=== PATIENT | male | born 1975 | race African-American/Black ===

== ENCOUNTER 2019-04-19 10:11 | Inpatient (IN) | payer OTHER ==
[2019-04-19 10:57] VITALS: BMI 24.5
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
[2019-04-19] MEDS ORDERED: IBUPROFEN 400 MG TABLET (FP) PO PRN (11:32)
[2019-04-19] MEDS ORDERED: BISMUTH SUBSALICYLATE 262 MG/15 ML BTL PO PRN (11:32)
[2019-04-19] MEDS ORDERED: MENTHOL/PHENOL 1 EACH UD MM PRN (11:32)
[2019-04-19] MEDS ORDERED: hydrOXYzine PAMOATE 25 MG CAPSULE (FP) PO PRN (11:32)
[2019-04-19] MEDS ORDERED: MAGNESIUM HYDROX 2400MG/30ML ORAL SUSPENSION 30 ML CUP PO PRN (11:32)
[2019-04-19] MEDS ORDERED: ACETAMINOPHEN 325 MG TABLET (FP) PO PRN ×2 (11:32)
[2019-04-19] MEDS ORDERED: MAGNESIUM CITRATE 300 ML BOTTLE PO PRN (11:32)
[2019-04-19] MEDS ORDERED: PATIENT'S OWN MEDICATION (NON-FORMULARY) (Amlodipine Besylate/Benazepril [Amlodipine-Benaz PO SCH (11:45)
[2019-04-19] MEDS: LISINOPRIL 10 MG TABLET (FP) PO SCH (13:48)
[2019-04-19] MEDS: NICOTINE 14 MG/24 HOURS TOPICAL PATCH TD SCH (13:48)
[2019-04-19] MEDS: amLODIPine BESYLATE 10 MG TABLET (FP) PO SCH (13:48)
[2019-04-19] MEDS: chlordiazePOXIDE HCL 25 MG CAPSULE PO SCH ×3 (13:48→22:18)
[2019-04-19 15:15] LABS: ALBUMIN 3.9 g/dl (3.4-5.0); BILIRUBIN,TOTAL 0.7 mg/dL (0.2-1); BLOOD UREA NITROGEN 12.5 mg/dL (7-18); CALCIUM 9.1 mg/dL (8.5-10.1); CREATININE 1.2 mg/dL (0.55-1.3); TOT PROT 6.9 g/dl (6.4-8.2)
[2019-04-19 15:24] LABS: HEMATOCRIT 46.3 % (35.4-49); HEMOGLOBIN 15.4 GM/dL (11.7-16.9); MCHC 33.3 g/dl (32.0-35.9); MEAN PLT VOLUME 9.2 fl (7.5-11.1); PLATELET COUNT 187 K/MM3 (134-434); RBC 5.51 M/mm3 (4.00-5.60); RDW 15.2 % (11.9-15.9); WHITE BLOOD COUNT 4.4 K/mm3 (4.0-10.0)
--- NOTE | 2019-04-19 15:56 | CONSULT ---
[facility] Psychiatric Consult - Data Date of interview: 04/19/19 Admission source: [facility]
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
[2019-04-19] MEDS: busPIRone HCL 10 MG TABLET (FP) PO SCH (22:18)
[2019-04-19] MEDS: THIAMINE HCL 100 MG TABLET (FP) PO SCH (22:18)
[2019-04-20] MEDS: chlordiazePOXIDE HCL 25 MG CAPSULE PO SCH ×4 (05:29→22:32)
[2019-04-20] MEDS: chlordiazePOXIDE HCL 25 MG CAPSULE PO PRN (07:49)
[2019-04-20] MEDS: METHOCARBAMOL 500 MG TABLET PO PRN (07:51)
[2019-04-20] MEDS: ARIPiprazole 10 MG TABLET PO SCH (10:09)
[2019-04-20] MEDS: PRENATAL VITAMINS W/ FOLIC ACID TABLET (FP) PO SCH (10:09)
[2019-04-20] MEDS: amLODIPine BESYLATE 10 MG TABLET (FP) PO SCH (10:10)
[2019-04-20] MEDS: NICOTINE 14 MG/24 HOURS TOPICAL PATCH TD SCH (10:10)
[2019-04-20] MEDS: LISINOPRIL 10 MG TABLET (FP) PO SCH (10:10)
[2019-04-20] MEDS: busPIRone HCL 10 MG TABLET (FP) PO SCH ×2 (10:10→22:32)
[2019-04-20] MEDS: ESCITALOPRAM OXALATE 10 MG TABLET (FP) PO SCH (10:10)
--- NOTE | 2019-04-20 14:36 | PN ---
[facility] CIWA - CIWA Score Nausea/Vomitin-No Nausea/No Vomiting Muscle Tremors: None Anxiety: 3 Agitation: 1-Slight > Activity Paroxysmal Sweats: No Perspiration Orientation: 2-Disoriented Date<2 days Tacttile Disturbances: 2-Mild Itch/Numbness/Burn Auditory Disturbances: 0-None Visual Disturbances: 3-Moderate Sensitivity Headache: 3-Moderate CIWA-Ar Total Score: 14 S Progress Note (SOAP) Subjective: Stomach Cramping, H/A, Fatigue, Anxious. Objective: PATIENT A & O X 2 (UNCERTAIN ABOUT CURRENT DAY / DATE). IN NO ACUTE DISTRESS. 04/20/19 14:37 Vital Signs Temperature 97.2 F L 04/20/19 13:50 Pulse Rate 65 04/20/19 13:50 Respiratory Rate 18 04/20/19 13:50 Blood Pressure 116/68 04/20/19 13:50 O2 Sat by Pulse Oximetry (%) Laboratory Tests 04/19/19 04/19/19 04/19/19 11:40 11:40 11:40 WBC 4.4 RBC 5.51 Hgb 15.4 Hct 46.3 MCV 84.0 MCH 28.0 MCHC 33.3 RDW 15.2 Plt Count 187 MPV 9.2 Sodium 140 Potassium 4.0 Chloride 103 Carbon Dioxide 29 Anion Gap 8 BUN 12.5 Creatinine 1.2 Est GFR (CKD-EPI)AfAm 84.13 Est GFR (CKD-EPI)NonAf 72.59 Random Glucose 79 Calcium 9.1 Total Bilirubin 0.7 AST 36 ALT 52 Alkaline Phosphatase 59 Total Protein 6.9 Albumin 3.9 RPR Titer Nonreactive HIV 1&2 Antibody Screen HIV P24 Antigen 04/19/19 11:40 WBC RBC Hgb Hct MCV MCH MCHC RDW Plt Count MPV Sodium Potassium Chloride Carbon Dioxide Anion Gap BUN Creatinine Est GFR (CKD-EPI)AfAm Est GFR (CKD-EPI)NonAf Random Glucose Calcium Total Bilirubin AST ALT Alkaline Phosphatase Total Protein Albumin RPR Titer HIV 1&2 Antibody Screen Cancelled HIV P24 Antigen Cancelled LABS NOTED. RESULTS OF DETOX ADMISSION QFT /TB AND OF HIV AB TESTS PENDING. 04/20/19 14:38 Assessment: 04/20/19 14:37 WITHDRAWAL SYMPTOMS. Plan: CONTINUE DETOX.
[2019-04-20] MEDS: THIAMINE HCL 100 MG TABLET (FP) PO SCH (22:32)
[2019-04-21] MEDS: chlordiazePOXIDE HCL 25 MG CAPSULE PO SCH ×4 (05:36→22:10)
[2019-04-21] MEDS: amLODIPine BESYLATE 10 MG TABLET (FP) PO SCH (10:10)
[2019-04-21] MEDS: ESCITALOPRAM OXALATE 10 MG TABLET (FP) PO SCH (10:10)
[2019-04-21] MEDS: busPIRone HCL 10 MG TABLET (FP) PO SCH ×2 (10:10→22:10)
[2019-04-21] MEDS: ARIPiprazole 10 MG TABLET PO SCH (10:10)
[2019-04-21] MEDS: LISINOPRIL 10 MG TABLET (FP) PO SCH (10:11)
[2019-04-21] MEDS: NICOTINE 14 MG/24 HOURS TOPICAL PATCH TD SCH (10:11)
[2019-04-21] MEDS: PRENATAL VITAMINS W/ FOLIC ACID TABLET (FP) PO SCH (10:11)
[2019-04-21] MEDS: chlordiazePOXIDE HCL 25 MG CAPSULE PO PRN (12:23)
--- NOTE | 2019-04-21 16:49 | PN ---
[facility] CIWA - CIWA Score Nausea/Vomitin-No Nausea/No Vomiting Muscle Tremors: None Anxiety: 3 Agitation: 1-Slight > Activity Paroxysmal Sweats: No Perspiration Orientation: 2-Disoriented Date<2 days Tacttile Disturbances: 2-Mild Itch/Numbness/Burn Auditory Disturbances: 0-None Visual Disturbances: 2-Mild Sensitivity Headache: 0-None Present CIWA-Ar Total Score: 10 S Progress Note (SOAP) Subjective: Interrupted Sleep, Fatigue, Stomach Cramping, Anxious. Objective: PATIENT A & O X 2 (UNCERTAIN ABOUT CURRENT DAY / DATE). IN NO ACUTE DISTRESS. 04/21/19 16:51 Vital Signs Temperature 98.9 F 04/21/19 13:30 Pulse Rate 79 04/21/19 13:30 Respiratory Rate 18 04/21/19 13:30 Blood Pressure 119/76 04/21/19 13:30 O2 Sat by Pulse Oximetry (%) Laboratory Tests 04/19/19 04/19/19 04/19/19 11:40 11:40 11:40 WBC 4.4 RBC 5.51 Hgb 15.4 Hct 46.3 MCV 84.0 MCH 28.0 MCHC 33.3 RDW 15.2 Plt Count 187 MPV 9.2 Sodium 140 Potassium 4.0 Chloride 103 Carbon Dioxide 29 Anion Gap 8 BUN 12.5 Creatinine 1.2 Est GFR (CKD-EPI)AfAm 84.13 Est GFR (CKD-EPI)NonAf 72.59 Random Glucose 79 Calcium 9.1 Total Bilirubin 0.7 AST 36 ALT 52 Alkaline Phosphatase 59 Total Protein 6.9 Albumin 3.9 RPR Titer Nonreactive HIV 1&2 Ag/Ab, 4th Gen HIV 1&2 Antibody Screen HIV P24 Antigen 04/19/19 04/19/19 11:40 11:40 WBC RBC Hgb Hct MCV MCH MCHC RDW Plt Count MPV Sodium Potassium Chloride Carbon Dioxide Anion Gap BUN Creatinine Est GFR (CKD-EPI)AfAm Est GFR (CKD-EPI)NonAf Random Glucose Calcium Total Bilirubin AST ALT Alkaline Phosphatase Total Protein Albumin RPR Titer HIV 1&2 Ag/Ab, 4th Gen Non reactive HIV 1&2 Antibody Screen Cancelled HIV P24 Antigen Cancelled LABS NOTED. RESULTS OF DETOX ADMISSION QFT /TB TEST PENDING. 04/21/19 16:51 Assessment: 04/21/19 16:52 WITHDRAWAL SYMPTOMS. Plan: CONTINUE DETOX.
[2019-04-21] MEDS: THIAMINE HCL 100 MG TABLET (FP) PO SCH (22:09)
[2019-04-22] MEDS ORDERED: chlordiazePOXIDE HCL 10 MG CAPSULE PO PRN
[2019-04-22] MEDS: chlordiazePOXIDE HCL 10 MG CAPSULE PO SCH ×4 (06:28→22:35)
[2019-04-22] MEDS: MAG HYDROX/AL HYDROX/SIMETH 30 ML UNIT-DOSE CUP PO PRN ×2 (06:28→21:47)
[2019-04-22] MEDS: amLODIPine BESYLATE 10 MG TABLET (FP) PO SCH (10:53)
[2019-04-22] MEDS: ARIPiprazole 10 MG TABLET PO SCH (10:53)
[2019-04-22] MEDS: ESCITALOPRAM OXALATE 10 MG TABLET (FP) PO SCH (10:53)
[2019-04-22] MEDS: LISINOPRIL 10 MG TABLET (FP) PO SCH (10:53)
[2019-04-22] MEDS: PRENATAL VITAMINS W/ FOLIC ACID TABLET (FP) PO SCH (10:53)
[2019-04-22] MEDS: busPIRone HCL 10 MG TABLET (FP) PO SCH ×2 (10:53→22:35)
[2019-04-22] MEDS: NICOTINE 14 MG/24 HOURS TOPICAL PATCH TD SCH (10:55)
[2019-04-22] MEDS: RANITIDINE HCL 150 MG TABLET (FP) PO SCH ×2 (12:18→22:35)
--- NOTE | 2019-04-22 15:53 | PN ---
[facility] CIWA - CIWA Score Nausea/Vomitin (Heartburn.) Muscle Tremors: 2 Anxiety: 3 Agitation: 1-Slight > Activity Paroxysmal Sweats: No Perspiration Orientation: 0-Oriented Tacttile Disturbances: 1-Very Mild Itch/Numbness Auditory Disturbances: 0-None Visual Disturbances: 2-Mild Sensitivity Headache: 0-None Present CIWA-Ar Total Score: 11 [facility] Progress Note (SOAP) Subjective: Interrupted Sleep, Heartburn (Patient Reports History of This At times in Past when Detoxing), Anxious. Objective: PATIENT A & O X 3, OBSERVED AMBULATING ON UNIT UNASSISTED. IN NO ACUTE DISTRESS. 04/22/19 15:50 Vital Signs Temperature 96.8 F L 04/22/19 09:47 Pulse Rate 76 04/22/19 09:47 Respiratory Rate 18 04/22/19 09:47 Blood Pressure 131/85 04/22/19 09:47 O2 Sat by Pulse Oximetry (%) Laboratory Tests 04/19/19 04/19/19 04/19/19 11:40 11:40 11:40 WBC 4.4 RBC 5.51 Hgb 15.4 Hct 46.3 MCV 84.0 MCH 28.0 MCHC 33.3 RDW 15.2 Plt Count 187 MPV 9.2 Sodium 140 Potassium 4.0 Chloride 103 Carbon Dioxide 29 Anion Gap 8 BUN 12.5 Creatinine 1.2 Est GFR (CKD-EPI)AfAm 84.13 Est GFR (CKD-EPI)NonAf 72.59 Random Glucose 79 Calcium 9.1 Total Bilirubin 0.7 AST 36 ALT 52 Alkaline Phosphatase 59 Total Protein 6.9 Albumin 3.9 RPR Titer Nonreactive HIV 1&2 Ag/Ab, 4th Gen HIV 1&2 Antibody Screen HIV P24 Antigen 04/19/19 04/19/19 11:40 11:40 WBC RBC Hgb Hct MCV MCH MCHC RDW Plt Count MPV Sodium Potassium Chloride Carbon Dioxide Anion Gap BUN Creatinine Est GFR (CKD-EPI)AfAm Est GFR (CKD-EPI)NonAf Random Glucose Calcium Total Bilirubin AST ALT Alkaline Phosphatase Total Protein Albumin RPR Titer HIV 1&2 Ag/Ab, 4th Gen Non reactive HIV 1&2 Antibody Screen Cancelled HIV P24 Antigen Cancelled LABS NOTED. RESULTS OF DETOX ADMISSION QFT /TB TEST PENDING. 04/22/19 15:50 Assessment: 04/22/19 15:51 WITHDRAWAL SYMPTOMS. Plan: CONTINUE DETOX. INCREASE DAILY PO WATER INTAKE. ZANTAC, 150 MG PO BID FOR HEARTBURN.
--- NOTE | 2019-04-22 19:39 | PN ---
[facility] Progress Note Note: Patient is referred for hiccups. As per patient, he gets it periodically and only responds to thorazine. Discussed other options such as Reglan but he declined as this medication has not worked in the past. One dose of thorazine 50mg ordered.
[2019-04-22] MEDS ORDERED: chlorproMAZINE HCL 25 MG TABLET PO ONE (20:00)
[2019-04-22] MEDS: METHOCARBAMOL 500 MG TABLET PO PRN (21:25)
[2019-04-22] MEDS: MELATONIN 5 MG TABLETS PO PRN (22:35)
[2019-04-22] MEDS: THIAMINE HCL 100 MG TABLET (FP) PO SCH (22:35)
[2019-04-23] MEDS: chlordiazePOXIDE HCL 10 MG CAPSULE PO SCH ×2 (06:01→17:22)
[2019-04-23] MEDS: METHOCARBAMOL 500 MG TABLET PO PRN (06:02)
[2019-04-23] MEDS: ESCITALOPRAM OXALATE 10 MG TABLET (FP) PO SCH (10:16)
[2019-04-23] MEDS: PRENATAL VITAMINS W/ FOLIC ACID TABLET (FP) PO SCH (10:16)
[2019-04-23] MEDS: ARIPiprazole 10 MG TABLET PO SCH (10:16)
[2019-04-23] MEDS: LISINOPRIL 10 MG TABLET (FP) PO SCH (10:16)
[2019-04-23] MEDS: amLODIPine BESYLATE 10 MG TABLET (FP) PO SCH (10:16)
[2019-04-23] MEDS: busPIRone HCL 10 MG TABLET (FP) PO SCH ×2 (10:16→22:38)
[2019-04-23] MEDS: NICOTINE 14 MG/24 HOURS TOPICAL PATCH TD SCH (10:17)
[2019-04-23] MEDS: RANITIDINE HCL 150 MG TABLET (FP) PO SCH ×2 (11:49→22:38)
--- NOTE | 2019-04-23 14:25 | PN ---
[facility] CIWA - CIWA Score Nausea/Vomitin-No Nausea/No Vomiting Muscle Tremors: 2 Anxiety: 2 Agitation: 2 Paroxysmal Sweats: 1-Minimal Palms Moist Orientation: 0-Oriented Tacttile Disturbances: 0-None Auditory Disturbances: 0-None Visual Disturbances: 0-None Headache: 0-None Present CIWA-Ar Total Score: 7 S Progress Note (SOAP) Subjective: 43 years old male admmitted on 04/20/19 for acute alcohol withdrawal sx management doing well with librium detox regimen no hiccup today resting on bed slept well last night tolerate food and fluid well denies dizziness Objective: 04/23/19 14:24 Vital Signs Temperature 97.9 F 04/23/19 09:41 Pulse Rate 98 H 04/23/19 09:41 Respiratory Rate 20 04/23/19 09:41 Blood Pressure 111/75 04/23/19 09:41 O2 Sat by Pulse Oximetry (%) Laboratory Last Values WBC 4.4 K/mm3 (4.0-10.0) 04/19/19 11:40 RBC 5.51 M/mm3 (4.00-5.60) 04/19/19 11:40 Hgb 15.4 GM/dL (11.7-16.9) 04/19/19 11:40 Hct 46.3 % (35.4-49) 04/19/19 11:40 MCV 84.0 fl (80-96) 04/19/19 11:40 MCH 28.0 pg (25.7-33.7) 04/19/19 11:40 MCHC 33.3 g/dl (32.0-35.9) 04/19/19 11:40 RDW 15.2 % (11.9-15.9) 04/19/19 11:40 Plt Count 187 K/MM3 (134-434) 04/19/19 11:40 MPV 9.2 fl (7.5-11.1) 04/19/19 11:40 Sodium 140 mmol/L (136-145) 04/19/19 11:40 Potassium 4.0 mmol/L (3.5-5.1) 04/19/19 11:40 Chloride 103 mmol/L (98-107) 04/19/19 11:40 Carbon Dioxide 29 mmol/L (21-32) 04/19/19 11:40 Anion Gap 8 MMOL/L (8-16) 04/19/19 11:40 BUN 12.5 mg/dL (7-18) 04/19/19 11:40 Creatinine 1.2 mg/dL (0.55-1.3) 04/19/19 11:40 Est GFR (CKD-EPI)AfAm 84.13 04/19/19 11:40 Est GFR (CKD-EPI)NonAf 72.59 04/19/19 11:40 Random Glucose 79 mg/dL (74-106) 04/19/19 11:40 Calcium 9.1 mg/dL (8.5-10.1) 04/19/19 11:40 Total Bilirubin 0.7 mg/dL (0.2-1) 04/19/19 11:40 AST 36 U/L (15-37) 04/19/19 11:40 ALT 52 U/L (13-61) 04/19/19 11:40 Alkaline Phosphatase 59 U/L (45-117) 04/19/19 11:40 Total Protein 6.9 g/dl (6.4-8.2) 04/19/19 11:40 Albumin 3.9 g/dl (3.4-5.0) 04/19/19 11:40 RPR Titer Nonreactive (NONREACTIVE) 04/19/19 11:40 HIV 1&2 Ag/Ab, 4th Gen Non reactive (Non Reactive) 04/19/19 11:40 HIV 1&2 Antibody Screen Cancelled 04/19/19 11:40 HIV P24 Antigen Cancelled 04/19/19 11:40 lab noted Assessment: 04/23/19 14:24 alcohol withdrawal sx Plan: continue librium detox regimen
[2019-04-23] MEDS: MAG HYDROX/AL HYDROX/SIMETH 30 ML UNIT-DOSE CUP PO PRN (16:14)
--- NOTE | 2019-04-23 18:04 | PN ---
[facility] Progress Note Note: call to evaluate patient by Nurse for hiccup on evaluation no hiccup seen close monitoring
[2019-04-23] MEDS: MELATONIN 5 MG TABLETS PO PRN (22:38)
[2019-04-23] MEDS: THIAMINE HCL 100 MG TABLET (FP) PO SCH (22:38)
[2019-04-24] MEDS ORDERED: chlordiazePOXIDE HCL 10 MG CAPSULE PO ONE (05:00)
[2019-04-24] MEDS: METHOCARBAMOL 500 MG TABLET PO PRN (05:52)
[2019-04-24 07:03] VITALS: BP 112/72; PULSE 67; TEMP 97
[2019-04-24] MEDS: NICOTINE 14 MG/24 HOURS TOPICAL PATCH TD SCH (09:33)
[2019-04-24] MEDS: ESCITALOPRAM OXALATE 10 MG TABLET (FP) PO SCH (09:33)
[2019-04-24] MEDS: amLODIPine BESYLATE 10 MG TABLET (FP) PO SCH (09:33)
[2019-04-24] MEDS: PRENATAL VITAMINS W/ FOLIC ACID TABLET (FP) PO SCH (09:33)
[2019-04-24] MEDS: busPIRone HCL 10 MG TABLET (FP) PO SCH (09:33)
[2019-04-24] MEDS: ARIPiprazole 10 MG TABLET PO SCH (09:33)
[2019-04-24] MEDS: LISINOPRIL 10 MG TABLET (FP) PO SCH (09:34)
[2019-04-24] MEDS: RANITIDINE HCL 150 MG TABLET (FP) PO SCH (09:35)
--- NOTE | 2019-04-24 11:41 | DS ---
[facility] Detox Discharge Summary Admission Date: 04/19/19 Discharge Date: 04/24/19 - History Present History: Alcohol Dependence Additional Comments: 43 years old male admitted on 04/19/19 for acute alcohol withdrawal sx management doing well with librium detox regimen no complication through out the detox stay but hiccup episode reporting long history of hiccup treated wtih thorazine report acid reflux not "hiccup" patient is able to differentiate between hiccup and acid reflux reporting the long history of acid reflux "coming up to my mouth" discuss alcohol related GI insult as well as exacerbate GERD condition Pertinent Past History: hypertension gerd - Physical Exam Results Vital Signs: Vital Signs Temperature 97.0 F L 04/24/19 07:02 Pulse Rate 67 04/24/19 07:02 Respiratory Rate 18 04/24/19 07:02 Blood Pressure 112/72 04/24/19 07:02 O2 Sat by Pulse Oximetry (%) Pertinent Admission Physical Exam Findings: alcohol withdrawal sxlab not Laboratory Last Values WBC 4.4 K/mm3 (4.0-10.0) 04/19/19 11:40 RBC 5.51 M/mm3 (4.00-5.60) 04/19/19 11:40 Hgb 15.4 GM/dL (11.7-16.9) 04/19/19 11:40 Hct 46.3 % (35.4-49) 04/19/19 11:40 MCV 84.0 fl (80-96) 04/19/19 11:40 MCH 28.0 pg (25.7-33.7) 04/19/19 11:40 MCHC 33.3 g/dl (32.0-35.9) 04/19/19 11:40 RDW 15.2 % (11.9-15.9) 04/19/19 11:40 Plt Count 187 K/MM3 (134-434) 04/19/19 11:40 MPV 9.2 fl (7.5-11.1) 04/19/19 11:40 Sodium 140 mmol/L (136-145) 04/19/19 11:40 Potassium 4.0 mmol/L (3.5-5.1) 04/19/19 11:40 Chloride 103 mmol/L (98-107) 04/19/19 11:40 Carbon Dioxide 29 mmol/L (21-32) 04/19/19 11:40 Anion Gap 8 MMOL/L (8-16) 04/19/19 11:40 BUN 12.5 mg/dL (7-18) 04/19/19 11:40 Creatinine 1.2 mg/dL (0.55-1.3) 04/19/19 11:40 Est GFR (CKD-EPI)AfAm 84.13 04/19/19 11:40 Est GFR (CKD-EPI)NonAf 72.59 04/19/19 11:40 Random Glucose 79 mg/dL (74-106) 04/19/19 11:40 Calcium 9.1 mg/dL (8.5-10.1) 04/19/19 11:40 Total Bilirubin 0.7 mg/dL (0.2-1) 04/19/19 11:40 AST 36 U/L (15-37) 04/19/19 11:40 ALT 52 U/L (13-61) 04/19/19 11:40 Alkaline Phosphatase 59 U/L (45-117) 04/19/19 11:40 Total Protein 6.9 g/dl (6.4-8.2) 04/19/19 11:40 Albumin 3.9 g/dl (3.4-5.0) 04/19/19 11:40 RPR Titer Nonreactive (NONREACTIVE) 04/19/19 11:40 HIV 1&2 Ag/Ab, 4th Gen Non reactive (Non Reactive) 04/19/19 11:40 HIV 1&2 Antibody Screen Cancelled 04/19/19 11:40 HIV P24 Antigen Cancelled 04/19/19 11:40 TB (QFT) Incubation (.) 04/20/19 07:00 TB Test (QFT) Nil 0.05 IU/mL (.) 04/20/19 07:00 TB Test (QFT) Mitogen >10.00 IU/mL (.) 04/20/19 07:00 TB Test (QFT) Antigen 0.08 IU/mL (.) 04/20/19 07:00 TB Test (QFT) Negative (Negative) 04/20/19 07:00 TB Positive Criteria (.) 04/20/19 07:00 lab noted - Treatment Hospital Course: Detox Protocol Followed, Detoxed Safely, Responded well, Discharged Condition Good, Rehab Referral Accepted Patient has Accepted a Rehab Referral to: [facility] - Medication Discharge Medications: Ambulatory Orders Amlodipine Besylate/Benazepril [Amlodipine-Benazepril 5-10 mg] 1 each PO DAILY 04/19/19 Aripiprazole [Abilify] 20 mg PO DAILY 04/19/19 Buspirone HCl [Buspar -] 10 mg PO BID 04/19/19 Escitalopram Oxalate [Lexapro -] 10 mg PO DAILY 04/19/19 Amlodipine Besylate [Norvasc -] 10 mg PO DAILY #30 tablet 04/23/19 - Diagnosis (1) Hypertension Status: Chronic Qualifiers: Hypertension type: essential hypertension Qualified Code(s): I10 - Essential (primary) hypertension (2) GERD (gastroesophageal reflux disease) Status: Chronic Qualifiers: Esophagitis presence: without esophagitis Qualified Code(s): K21.9 - Gastro -esophageal reflux disease without esophagitis (3) Alcohol dependence with uncomplicated withdrawal Status: Acute (4) Nicotine dependence Status: Acute Qualifiers: Nicotine product type: cigarettes Substance use status: in withdrawal Qualified Code(s): F17.213 - Nicotine dependence, cigarettes, with withdrawal (5) Substance induced mood disorder Status: Suspected - AMA Did Patient Leave Against Medical Advice: No CIWA Score - CIWA Score Nausea/Vomitin-No Nausea/No Vomiting Muscle Tremors: 1-None Visible, but [place] Anxiety: 2 Agitation: 1-Slight > Activity Paroxysmal Sweats: No Perspiration Orientation: 0-Oriented Tacttile Disturbances: 0-None Auditory Disturbances: 0-None Visual Disturbances: 0-None Headache: 0-None Present CIWA-Ar Total Score: 4
== END 2019-04-24 08:36 | disposition home or self-care (01) | DRG 897 ==
LOC: YASAS 10:11 → Y3N 12:28
PROVIDERS: ADMIT Surgery; ATTEND Surgery
PROC: HZ2ZZZZ Detoxification Services for Substance Abuse Treatment (ICD-10-PCS; principal; 2019-04-19)
DX: F10.230 Alcohol dependence with withdrawal, uncomplicated (principal); F14.10 Cocaine abuse, uncomplicated; F17.213 Nicotine dependence, cigarettes, with withdrawal; F19.24 Other psychoactive substance dependence with psychoactive substance-induced mood disorder; I10 Essential (primary) hypertension; K21.9 Gastro-esophageal reflux disease without esophagitis; K40.90 Unilateral inguinal hernia, without obstruction or gangrene, not specified as recurrent; R06.6 Hiccough
CPT/HCPCS: 36415; 80053; 85027; 86480; 86593; 87389

== ENCOUNTER 2023-03-31 12:18 | Inpatient (IN) | payer OTHER ==
[2023-03-31 13:41] VITALS: BMI 23.5
[2023-03-31] MEDS ORDERED: IBUPROFEN 600 MG TABLET (FP) PO PRN (14:14)
[2023-03-31] MEDS ORDERED: guaiFENesin 600 MG TABLET.ER (FP) PO PRN (14:14)
[2023-03-31] MEDS ORDERED: DICYCLOMINE HCL 10 MG CAPSULE PO PRN (14:14)
[2023-03-31] MEDS ORDERED: IBUPROFEN 400 MG TABLET (FP) PO PRN (14:14)
[2023-03-31] MEDS ORDERED: LOPERAMIDE HCL 2 MG CAPSULE PO PRN (14:14)
[2023-03-31] MEDS ORDERED: MAGNESIUM HYDROX 2400MG/30ML ORAL SUSPENSION 30 ML CUP PO PRN (14:14)
[2023-03-31] MEDS ORDERED: BENZOCAINE/MENTHOL (CHLORASEPTIC ) LOZENGE MM PRN (14:14)
[2023-03-31] MEDS ORDERED: BISMUTH SUBSALICYLATE 262 MG/15 ML BTL PO PRN (14:14)
[2023-03-31] MEDS ORDERED: MAG HYDROX/AL HYDROX/SIMETH 30 ML UNIT-DOSE CUP PO PRN (14:14)
[2023-03-31] MEDS ORDERED: ONDANSETRON *ODT* 4 MG TABLET SL PRN (14:14)
[2023-03-31] MEDS ORDERED: POLYETHYLENE GLYCOL (HEALTHYLAX) 3350 17 GM PACKET PO PRN (14:14)
[2023-03-31] MEDS ORDERED: NALOXONE HCL 0.4 MG/ML VIAL IM PRN (14:14)
[2023-03-31] MEDS ORDERED: ACETAMINOPHEN 325 MG TABLET (FP) PO PRN (14:14)
[2023-03-31] MEDS ORDERED: BENZONATATE 200 MG CAPSULE PO PRN (14:14)
[2023-03-31] MEDS ORDERED: NALOXONE HCL (KLOXXADO) 8 MG SPRAY NS PRN (14:14)
[2023-03-31] MEDS: PRENATAL VITAMINS W/ FOLIC ACID TABLET (FP) PO SCH (15:39)
[2023-03-31] MEDS: NICOTINE 14 MG/24 HOURS TOPICAL PATCH TD SCH (15:40)
[2023-03-31] MEDS ORDERED: NICOTINE 14 MG/24 HOURS TOPICAL PATCH TD ONE (15:47)
[2023-03-31] MEDS ORDERED: PRENATAL VITAMINS W/ FOLIC ACID TABLET (FP) PO ONE (15:47)
[2023-03-31 17:20] LABS: HEMATOCRIT 44.6 % (35.4-49); HEMOGLOBIN 14.8 GM/dL (11.7-16.9); MCH 26.8 pg (25.7-33.7); MCHC 33.3 g/dl (32.0-35.9); MEAN CELL VOLUME 80.7 fl (80-96); MEAN PLT VOLUME 8.5 fl (7.5-11.1); PLATELET COUNT 193 10^3/uL (134-434); RBC 5.53 M/mm3 (4.00-5.60); RDW 15.8 % (11.9-15.9); WHITE BLOOD COUNT 4.4 K/mm3 (4.0-10.0)
[2023-03-31 17:21] LABS: POTASSIUM 3.9 mmol/L (3.5-5.1)
[2023-03-31 17:30] LABS: ALBUMIN 3.7 g/dl (3.4-5.0)
[2023-03-31 17:31] LABS: CREATININE 1.1 mg/dL (0.55-1.3); TOT PROT 7.2 g/dl (6.4-8.2)
[2023-03-31 17:32] LABS: BILIRUBIN,TOTAL 0.5 mg/dL (0.2-1); CALCIUM 8.4 mg/dL (8.5-10.1)
[2023-03-31] MEDS: METHOCARBAMOL 500 MG TABLET PO PRN (21:25)
[2023-03-31] MEDS: hydrOXYzine PAMOATE 25 MG CAPSULE (FP) PO PRN (21:25)
[2023-03-31] MEDS: THIAMINE HCL 100 MG TABLET (FP) PO SCH (21:25)
[2023-03-31] MEDS: MELATONIN 5 MG TABLETS PO SCH (21:25)
[2023-04-01] MEDS: hydrOXYzine PAMOATE 25 MG CAPSULE (FP) PO PRN (05:38)
[2023-04-01] MEDS: METHOCARBAMOL 500 MG TABLET PO PRN (05:39)
[2023-04-01] MEDS: LISINOPRIL 20 MG TABLET PO SCH (08:16)
[2023-04-01] MEDS: PRENATAL VITAMINS W/ FOLIC ACID TABLET (FP) PO SCH (09:42)
[2023-04-01] MEDS: amLODIPine BESYLATE 10 MG TABLET (FP) PO SCH (09:42)
[2023-04-01] MEDS: NICOTINE 14 MG/24 HOURS TOPICAL PATCH TD SCH (09:44)
[2023-04-01] MEDS ORDERED: methaDONE HCL 40 MG DISPERSABLE TABLET PO ONE (10:00)
[2023-04-01] MEDS ORDERED: ARIPiprazole 10 MG TABLET PO SCH (10:45)
[2023-04-01] MEDS ORDERED: SERTRALINE HCL 50 MG TABLET (FP) PO SCH (10:45)
[2023-04-01] MEDS: ARIPiprazole 10 MG TABLET PO SCH (12:15)
[2023-04-01] MEDS: SERTRALINE HCL 50 MG TABLET (FP) PO SCH (12:15)
[2023-04-01] MEDS ORDERED: PRAZOSIN HCL 1 MG CAPSULE PO SCH (22:00)
[2023-04-01] MEDS: MELATONIN 5 MG TABLETS PO SCH (22:44)
[2023-04-01] MEDS: THIAMINE HCL 100 MG TABLET (FP) PO SCH (22:44)
[2023-04-02] MEDS ORDERED: methaDONE HCL 40 MG DISPERSABLE TABLET PO SCH (06:00)
[2023-04-02] MEDS: LISINOPRIL 20 MG TABLET PO SCH (07:56)
[2023-04-02 09:30] VITALS: BP 120/72; PULSE 73; RESP 18; TEMP 97.7
[2023-04-02] MEDS: NICOTINE 14 MG/24 HOURS TOPICAL PATCH TD SCH (10:43)
[2023-04-02] MEDS: ARIPiprazole 10 MG TABLET PO SCH (10:44)
[2023-04-02] MEDS: METHOCARBAMOL 500 MG TABLET PO PRN (10:44)
[2023-04-02] MEDS: amLODIPine BESYLATE 10 MG TABLET (FP) PO SCH (10:44)
[2023-04-02] MEDS: hydrOXYzine PAMOATE 25 MG CAPSULE (FP) PO PRN (10:44)
[2023-04-02] MEDS: PRENATAL VITAMINS W/ FOLIC ACID TABLET (FP) PO SCH (10:45)
[2023-04-02] MEDS: SERTRALINE HCL 50 MG TABLET (FP) PO SCH (10:45)
== END 2023-04-02 12:15 | disposition other institution (70) | DRG 897 ==
LOC: YASAS 12:18 → Y6N 15:15
PROVIDERS: ADMIT Allergy & Immunology; ATTEND Surgery
PROC: HZ2ZZZZ Detoxification Services for Substance Abuse Treatment (ICD-10-PCS; principal; 2023-03-31)
DX: F10.230 Alcohol dependence with withdrawal, uncomplicated (principal); F11.20 Opioid dependence, uncomplicated; F14.20 Cocaine dependence, uncomplicated; F19.282 Other psychoactive substance dependence with psychoactive substance-induced sleep disorder; F17.210 Nicotine dependence, cigarettes, uncomplicated; F25.1 Schizoaffective disorder, depressive type; F19.24 Other psychoactive substance dependence with psychoactive substance-induced mood disorder; I10 Essential (primary) hypertension; J45.909 Unspecified asthma, uncomplicated; K21.9 Gastro-esophageal reflux disease without esophagitis; Z62.810 Personal history of physical and sexual abuse in childhood; Z91.410 Personal history of adult physical and sexual abuse; Z56.0 Unemployment, unspecified; Z59.00 Homelessness unspecified
CPT/HCPCS: 36415; 80053; 80307; 85027; 86780; 87635; 87811

== ENCOUNTER 2023-04-02 12:18 | Inpatient (IN) | payer OTHER ==
[2023-04-02] MEDS ORDERED: METHOCARBAMOL 500 MG TABLET PO PRN (14:09)
[2023-04-02] MEDS ORDERED: guaiFENesin 600 MG TABLET.ER (FP) PO PRN (14:09)
[2023-04-02] MEDS ORDERED: NALOXONE HCL (KLOXXADO) 8 MG SPRAY NS PRN (14:09)
[2023-04-02] MEDS ORDERED: NALOXONE HCL 0.4 MG/ML VIAL IVPUSH PRN (14:09)
[2023-04-02] MEDS ORDERED: IBUPROFEN 400 MG TABLET (FP) PO PRN (14:09)
[2023-04-02] MEDS ORDERED: NICOTINE 10 MG CARTRIDGE (INHALER) IH PRN (14:09)
[2023-04-02] MEDS ORDERED: ACETAMINOPHEN 325 MG TABLET (FP) PO PRN (14:09)
[2023-04-02] MEDS ORDERED: LOPERAMIDE HCL 2 MG CAPSULE PO PRN (14:09)
[2023-04-02] MEDS ORDERED: IBUPROFEN 600 MG TABLET (FP) PO PRN (14:09)
[2023-04-02] MEDS ORDERED: POLYETHYLENE GLYCOL (HEALTHYLAX) 3350 17 GM PACKET PO PRN (14:09)
[2023-04-02] MEDS ORDERED: BENZONATATE 200 MG CAPSULE PO PRN (14:09)
[2023-04-02] MEDS ORDERED: hydrOXYzine PAMOATE 25 MG CAPSULE (FP) PO PRN (14:09)
[2023-04-02] MEDS ORDERED: MAG HYDROX/AL HYDROX/SIMETH 30 ML UNIT-DOSE CUP PO PRN (14:09)
[2023-04-02] MEDS ORDERED: MAGNESIUM HYDROX 2400MG/30ML ORAL SUSPENSION 30 ML CUP PO PRN (14:09)
[2023-04-02] MEDS ORDERED: AMMONIUM LACTATE 12% LOTION 225 GM BOTTLE TP PRN (14:09)
[2023-04-02] MEDS ORDERED: BENZOCAINE/MENTHOL (CHLORASEPTIC ) LOZENGE MM PRN (14:09)
[2023-04-02] MEDS ORDERED: COLLOIDAL OATMEAL 1 BAR EACH TP PRN (14:09)
[2023-04-02] MEDS ORDERED: NICOTINE 14 MG/24 HOURS TOPICAL PATCH TD PRN (14:09)
[2023-04-02] MEDS: MELATONIN 5 MG TABLETS PO SCH (21:12)
[2023-04-02] MEDS: THIAMINE HCL 100 MG TABLET (FP) PO SCH (21:12)
[2023-04-02] MEDS: PRAZOSIN HCL 1 MG CAPSULE PO SCH (21:13)
[2023-04-03] MEDS: methaDONE HCL 40 MG DISPERSABLE TABLET PO SCH (06:28)
[2023-04-03] MEDS ORDERED: ARIPiprazole 5 MG TABLET ONE (09:05)
[2023-04-03] MEDS: PRENATAL VITAMINS W/ FOLIC ACID TABLET (FP) PO SCH (09:47)
[2023-04-03] MEDS: ARIPiprazole 10 MG TABLET PO SCH (09:47)
[2023-04-03] MEDS: LISINOPRIL 20 MG TABLET PO SCH (09:47)
[2023-04-03] MEDS: amLODIPine BESYLATE 10 MG TABLET (FP) PO SCH (09:47)
[2023-04-03] MEDS: SERTRALINE HCL 25 MG TABLET (FP) PO SCH (09:47)
[2023-04-03] MEDS: MELATONIN 5 MG TABLETS PO SCH (21:33)
[2023-04-03] MEDS: PRAZOSIN HCL 1 MG CAPSULE PO SCH (21:33)
[2023-04-03] MEDS: THIAMINE HCL 100 MG TABLET (FP) PO SCH (21:33)
[2023-04-04] MEDS: methaDONE HCL 40 MG DISPERSABLE TABLET PO SCH (06:28)
[2023-04-04] MEDS ORDERED: ARIPiprazole 5 MG TABLET ONE (08:44)
[2023-04-04] MEDS: SERTRALINE HCL 25 MG TABLET (FP) PO SCH (09:42)
[2023-04-04] MEDS: amLODIPine BESYLATE 10 MG TABLET (FP) PO SCH (09:43)
[2023-04-04] MEDS: ARIPiprazole 10 MG TABLET PO SCH (09:43)
[2023-04-04] MEDS: LISINOPRIL 20 MG TABLET PO SCH (09:44)
[2023-04-04] MEDS: PRENATAL VITAMINS W/ FOLIC ACID TABLET (FP) PO SCH (09:44)
[2023-04-04] MEDS: MELATONIN 5 MG TABLETS PO SCH (21:35)
[2023-04-04] MEDS: PRAZOSIN HCL 1 MG CAPSULE PO SCH (21:35)
[2023-04-04] MEDS: THIAMINE HCL 100 MG TABLET (FP) PO SCH (21:35)
[2023-04-05] MEDS: methaDONE HCL 40 MG DISPERSABLE TABLET PO SCH (06:58)
[2023-04-05] MEDS: ARIPiprazole 10 MG TABLET PO SCH (09:24)
[2023-04-05] MEDS: amLODIPine BESYLATE 10 MG TABLET (FP) PO SCH (09:25)
[2023-04-05] MEDS: SERTRALINE HCL 25 MG TABLET (FP) PO SCH (09:26)
[2023-04-05] MEDS: LISINOPRIL 20 MG TABLET PO SCH (09:26)
[2023-04-05] MEDS: PRENATAL VITAMINS W/ FOLIC ACID TABLET (FP) PO SCH (09:26)
[2023-04-05] MEDS: THIAMINE HCL 100 MG TABLET (FP) PO SCH (21:31)
[2023-04-05] MEDS: MELATONIN 5 MG TABLETS PO SCH (21:31)
[2023-04-05] MEDS: PRAZOSIN HCL 1 MG CAPSULE PO SCH (21:32)
[2023-04-06] MEDS ORDERED: methaDONE HCL 40 MG DISPERSABLE TABLET PO SCH (06:00)
[2023-04-06] MEDS: methaDONE 40 MG, methaDONE 30 MG PO SCH (06:12)
[2023-04-06] MEDS ORDERED: ARIPiprazole 5 MG TABLET ONE (08:38)
[2023-04-06] MEDS: LISINOPRIL 20 MG TABLET PO SCH (09:53)
[2023-04-06] MEDS: PRENATAL VITAMINS W/ FOLIC ACID TABLET (FP) PO SCH (09:53)
[2023-04-06] MEDS: SERTRALINE HCL 25 MG TABLET (FP) PO SCH (09:54)
[2023-04-06] MEDS: ARIPiprazole 10 MG TABLET PO SCH (09:54)
[2023-04-06] MEDS: amLODIPine BESYLATE 10 MG TABLET (FP) PO SCH (09:54)
[2023-04-06] MEDS: PRAZOSIN HCL 1 MG CAPSULE PO SCH (21:40)
[2023-04-06] MEDS: THIAMINE HCL 100 MG TABLET (FP) PO SCH (21:40)
[2023-04-06] MEDS: MELATONIN 5 MG TABLETS PO SCH (21:40)
[2023-04-07] MEDS: methaDONE 40 MG, methaDONE 30 MG PO SCH (06:00)
[2023-04-07] MEDS ORDERED: ARIPiprazole 5 MG TABLET ONE (08:57)
[2023-04-07] MEDS: SERTRALINE HCL 25 MG TABLET (FP) PO SCH (09:40)
[2023-04-07] MEDS: PRENATAL VITAMINS W/ FOLIC ACID TABLET (FP) PO SCH (09:43)
[2023-04-07] MEDS: ARIPiprazole 10 MG TABLET PO SCH (09:43)
[2023-04-07] MEDS: amLODIPine BESYLATE 10 MG TABLET (FP) PO SCH (09:43)
[2023-04-07] MEDS: LISINOPRIL 20 MG TABLET PO SCH (09:43)
[2023-04-07] MEDS: THIAMINE HCL 100 MG TABLET (FP) PO SCH (21:11)
[2023-04-07] MEDS: MELATONIN 5 MG TABLETS PO SCH (21:11)
[2023-04-07] MEDS: PRAZOSIN HCL 1 MG CAPSULE PO SCH (21:11)
[2023-04-08] MEDS: methaDONE 40 MG, methaDONE 30 MG PO SCH (06:33)
[2023-04-08] MEDS ORDERED: ARIPiprazole 5 MG TABLET ONE (08:56)
[2023-04-08] MEDS: SERTRALINE HCL 25 MG TABLET (FP) PO SCH (09:38)
[2023-04-08] MEDS: LISINOPRIL 20 MG TABLET PO SCH (09:38)
[2023-04-08] MEDS: amLODIPine BESYLATE 10 MG TABLET (FP) PO SCH (09:38)
[2023-04-08] MEDS: PRENATAL VITAMINS W/ FOLIC ACID TABLET (FP) PO SCH (09:39)
[2023-04-08] MEDS: ARIPiprazole 10 MG TABLET PO SCH (09:39)
[2023-04-08] MEDS: MELATONIN 5 MG TABLETS PO SCH (21:22)
[2023-04-08] MEDS: THIAMINE HCL 100 MG TABLET (FP) PO SCH (21:22)
[2023-04-08] MEDS: PRAZOSIN HCL 1 MG CAPSULE PO SCH (21:23)
[2023-04-09] MEDS: methaDONE 40 MG, methaDONE 30 MG PO SCH (06:30)
[2023-04-09] MEDS ORDERED: ARIPiprazole 5 MG TABLET ONE (08:58)
[2023-04-09] MEDS: ARIPiprazole 10 MG TABLET PO SCH (10:06)
[2023-04-09] MEDS: PRENATAL VITAMINS W/ FOLIC ACID TABLET (FP) PO SCH (10:07)
[2023-04-09] MEDS: SERTRALINE HCL 25 MG TABLET (FP) PO SCH (10:07)
[2023-04-09] MEDS: LISINOPRIL 20 MG TABLET PO SCH (10:07)
[2023-04-09] MEDS: amLODIPine BESYLATE 10 MG TABLET (FP) PO SCH (10:07)
[2023-04-09] MEDS: PRAZOSIN HCL 1 MG CAPSULE PO SCH (21:22)
[2023-04-09] MEDS: MELATONIN 5 MG TABLETS PO SCH (21:22)
[2023-04-09] MEDS: THIAMINE HCL 100 MG TABLET (FP) PO SCH (21:22)
[2023-04-10] MEDS: methaDONE 40 MG, methaDONE 30 MG PO SCH (06:18)
[2023-04-10] MEDS ORDERED: ARIPiprazole 5 MG TABLET ONE (08:13)
[2023-04-10] MEDS: LISINOPRIL 20 MG TABLET PO SCH (09:47)
[2023-04-10] MEDS: ARIPiprazole 10 MG TABLET PO SCH (09:47)
[2023-04-10] MEDS: amLODIPine BESYLATE 10 MG TABLET (FP) PO SCH (09:47)
[2023-04-10] MEDS: PRENATAL VITAMINS W/ FOLIC ACID TABLET (FP) PO SCH (09:47)
[2023-04-10] MEDS: SERTRALINE HCL 25 MG TABLET (FP) PO SCH (09:48)
[2023-04-10] MEDS: THIAMINE HCL 100 MG TABLET (FP) PO SCH (21:21)
[2023-04-10] MEDS: MELATONIN 5 MG TABLETS PO SCH (21:21)
[2023-04-10] MEDS: PRAZOSIN HCL 1 MG CAPSULE PO SCH (21:21)
[2023-04-11] MEDS: methaDONE 40 MG, methaDONE 30 MG PO SCH (06:34)
[2023-04-11] MEDS ORDERED: ARIPiprazole 5 MG TABLET ONE (08:12)
[2023-04-11] MEDS: amLODIPine BESYLATE 10 MG TABLET (FP) PO SCH (09:35)
[2023-04-11] MEDS: ARIPiprazole 10 MG TABLET PO SCH (09:35)
[2023-04-11] MEDS: SERTRALINE HCL 25 MG TABLET (FP) PO SCH (09:36)
[2023-04-11] MEDS: LISINOPRIL 20 MG TABLET PO SCH (09:36)
[2023-04-11] MEDS: PRENATAL VITAMINS W/ FOLIC ACID TABLET (FP) PO SCH (09:36)
[2023-04-11 10:14] VITALS: RESP 16
[2023-04-11] MEDS: MELATONIN 5 MG TABLETS PO SCH (21:20)
[2023-04-11] MEDS: THIAMINE HCL 100 MG TABLET (FP) PO SCH (21:20)
[2023-04-11] MEDS: PRAZOSIN HCL 1 MG CAPSULE PO SCH (21:21)
[2023-04-12] MEDS: methaDONE 40 MG, methaDONE 30 MG PO SCH (06:11)
[2023-04-12 06:41] VITALS: BP 133/78; PULSE 94; TEMP 98
[2023-04-12] MEDS ORDERED: ARIPiprazole 5 MG TABLET ONE (08:42)
[2023-04-12] MEDS: LISINOPRIL 20 MG TABLET PO SCH (09:06)
[2023-04-12] MEDS: ARIPiprazole 10 MG TABLET PO SCH (09:06)
[2023-04-12] MEDS: SERTRALINE HCL 25 MG TABLET (FP) PO SCH (09:07)
[2023-04-12] MEDS: amLODIPine BESYLATE 10 MG TABLET (FP) PO SCH (09:07)
[2023-04-12] MEDS: PRENATAL VITAMINS W/ FOLIC ACID TABLET (FP) PO SCH (09:07)
== END 2023-04-12 09:12 | disposition home or self-care (01) | DRG 895 ==
LOC: YASAS 12:18 → Y3E 12:20
PROVIDERS: ADMIT Allergy & Immunology; ATTEND Psychiatry & Neurology Pain Medicine
PROC: HZ42ZZZ Group Counseling for Substance Abuse Treatment, Cognitive-Behavioral (ICD-10-PCS; principal; 2023-04-02)
DX: F10.20 Alcohol dependence, uncomplicated (principal); F11.20 Opioid dependence, uncomplicated; F14.20 Cocaine dependence, uncomplicated; F17.210 Nicotine dependence, cigarettes, uncomplicated; F31.9 Bipolar disorder, unspecified; F19.982 Other psychoactive substance use, unspecified with psychoactive substance-induced sleep disorder; F25.1 Schizoaffective disorder, depressive type; I10 Essential (primary) hypertension; Z21 Asymptomatic human immunodeficiency virus [HIV] infection status; K21.9 Gastro-esophageal reflux disease without esophagitis; J45.909 Unspecified asthma, uncomplicated; M19.90 Unspecified osteoarthritis, unspecified site; R26.2 Difficulty in walking, not elsewhere classified; Z99.89 Dependence on other enabling machines and devices; Z59.00 Homelessness unspecified
CPT/HCPCS: 36415; 82140; 86803

== ENCOUNTER 2023-12-10 17:50 | Inpatient (IN) | payer OTHER ==
[2023-12-10 18:24] VITALS: BMI 23.5
[2023-12-10] MEDS ORDERED: LOPERAMIDE HCL 2 MG CAPSULE PO PRN (18:43)
[2023-12-10] MEDS ORDERED: NALOXONE HCL 0.4 MG/ML VIAL IM PRN (18:43)
[2023-12-10] MEDS ORDERED: NICOTINE POLACRILEX 2 MG GUM BUC PRN (18:43)
[2023-12-10] MEDS ORDERED: MAGNESIUM HYDROX 2400MG/30ML ORAL SUSPENSION 30 ML CUP PO PRN (18:43)
[2023-12-10] MEDS ORDERED: NALOXONE HCL (KLOXXADO) 8 MG SPRAY NS PRN (18:43)
[2023-12-10] MEDS ORDERED: BISMUTH SUBSALICYLATE 524 MG/30 ML PO PRN (18:43)
[2023-12-10] MEDS ORDERED: IBUPROFEN 400 MG TABLET (FP) PO PRN (18:43)
[2023-12-10] MEDS ORDERED: ONDANSETRON *ODT* 4 MG TABLET SL PRN (18:43)
[2023-12-10] MEDS ORDERED: POLYETHYLENE GLYCOL (HEALTHYLAX) 3350 17 GM PACKET PO PRN (18:43)
[2023-12-10] MEDS ORDERED: BENZONATATE 200 MG CAPSULE PO PRN (18:43)
[2023-12-10] MEDS ORDERED: DICYCLOMINE HCL 10 MG CAPSULE PO PRN (18:43)
[2023-12-10] MEDS ORDERED: MAG HYDROX/AL HYDROX/SIMETH 30 ML UNIT-DOSE CUP PO PRN (18:43)
[2023-12-10] MEDS ORDERED: BENZOCAINE/MENTHOL (CHLORASEPTIC ) LOZENGE MM PRN (18:43)
[2023-12-10] MEDS ORDERED: IBUPROFEN 600 MG TABLET (FP) PO PRN (18:43)
[2023-12-10] MEDS ORDERED: guaiFENesin 600 MG TABLET.ER (FP) PO PRN (18:43)
[2023-12-10] MEDS ORDERED: ACETAMINOPHEN 325 MG TABLET (FP) PO PRN (18:43)
[2023-12-10] MEDS ORDERED: P-EPHED 60MG/TRIPROLIDI 2.5MG TABLET PO PRN (18:43)
[2023-12-10] MEDS: MELATONIN 5 MG TABLETS PO SCH (22:32)
[2023-12-10] MEDS: THIAMINE HCL 100 MG TABLET (FP) PO SCH (22:32)
[2023-12-11] MEDS ORDERED: diazePAM 5 MG TABLET PO PRN (09:57)
[2023-12-11] MEDS ORDERED: cloNIDine HCL 0.1 MG TABLET PO PRN (09:57)
[2023-12-11] MEDS: methaDONE HCL 10 MG TABLET (FOR DETOX USE ONLY) PO ONE (10:33)
[2023-12-11] MEDS: PRENATAL VITAMINS W/ FOLIC ACID TABLET (FP) PO SCH (10:34)
[2023-12-11] MEDS: diazePAM 5 MG TABLET PO SCH (10:35)
[2023-12-11 15:25] LABS: POTASSIUM 3.3 mmol/L (3.5-5.1)
[2023-12-11 15:27] LABS: CALCIUM 8.6 mg/dL (8.5-10.1)
[2023-12-11 15:28] LABS: ALBUMIN 3.2 g/dl (3.4-5.0); BLOOD UREA NITROGEN 12.8 mg/dL (7-18)
[2023-12-11 15:31] LABS: CREATININE 0.9 mg/dL (0.55-1.3)
[2023-12-11 15:32] LABS: BILIRUBIN,TOTAL 0.7 mg/dL (0.2-1)
[2023-12-11 15:33] LABS: TOT PROT 5.9 g/dl (6.4-8.2)
[2023-12-11 15:38] LABS: HEMATOCRIT 39.7 % (35.4-49); HEMOGLOBIN 13.1 GM/dL (11.7-16.9); MCH 25.9 pg (25.7-33.7); MCHC 33.1 g/dl (32.0-35.9); MEAN CELL VOLUME 78.4 fl (80-96); MEAN PLT VOLUME 9.6 fl (7.5-11.1); PLATELET COUNT 173 10^3/uL (134-434); RBC 5.06 M/mm3 (4.00-5.60); RDW 16.2 % (11.9-15.9); WHITE BLOOD COUNT 4.7 K/mm3 (4.0-10.0)
[2023-12-11 16:25] LABS: HIV INTERPRETATION NEGATIVE (NEGATIVE)
[2023-12-11] MEDS: METHOCARBAMOL 500 MG TABLET PO PRN (17:19)
[2023-12-12] MEDS: POTASSIUM CHLORIDE ORAL LIQUID 20 MEQ/15 ML PO ONE (13:50)
[2023-12-13] MEDS: diazePAM 5 MG TABLET PO SCH (05:57)
[2023-12-13] MEDS: methaDONE HCL 10 MG TABLET (FOR DETOX USE ONLY) PO ONE (10:07)
[2023-12-14] MEDS: diazePAM 5 MG TABLET PO SCH (05:29)
[2023-12-15] MEDS: diazePAM 5 MG TABLET PO ONE (05:17)
[2023-12-15] MEDS: methaDONE HCL 10 MG TABLET (FOR DETOX USE ONLY) PO ONE (10:17)
[2023-12-15] MEDS: hydrOXYzine PAMOATE 25 MG CAPSULE (FP) PO PRN (17:13)
[2023-12-16 06:06] VITALS: RESP 16
[2023-12-16 09:43] VITALS: BP 145/80; PULSE 71; TEMP 97.7
== END 2023-12-16 10:55 | disposition home or self-care (01) | DRG 897 ==
LOC: YASAS 17:50 → Y3N 19:33
PROVIDERS: ADMIT Allergy & Immunology; ATTEND Surgery
PROC: HZ2ZZZZ Detoxification Services for Substance Abuse Treatment (ICD-10-PCS; principal; 2023-12-10)
DX: F11.23 Opioid dependence with withdrawal (principal); F14.20 Cocaine dependence, uncomplicated; Z59.01 Sheltered homelessness; F10.230 Alcohol dependence with withdrawal, uncomplicated; F17.210 Nicotine dependence, cigarettes, uncomplicated; F41.9 Anxiety disorder, unspecified; E87.6 Hypokalemia; I10 Essential (primary) hypertension
CPT/HCPCS: 0241U-QW; 36415; 80053; 84132; 85027; 86780; 87389; 93005; 93010

== ENCOUNTER 2024-05-17 15:35 | Inpatient (IN) | payer OTHER ==
[2024-05-17 16:22] VITALS: BMI 24.9
[2024-05-17] MEDS ORDERED: ACETAMINOPHEN 325 MG TABLET (FP) PO PRN (17:16)
[2024-05-17] MEDS ORDERED: BENZOCAINE/MENTHOL (CHLORASEPTIC ) LOZENGE MM PRN (17:16)
[2024-05-17] MEDS ORDERED: MAG HYDROX/AL HYDROX/SIMETH 30 ML UNIT-DOSE CUP PO PRN (17:16)
[2024-05-17] MEDS ORDERED: ONDANSETRON *ODT* 4 MG TABLET SL PRN (17:16)
[2024-05-17] MEDS ORDERED: NALOXONE (NARCAN) HCL 4 MG/0.1 ML SPRAY NS PRN (17:16)
[2024-05-17] MEDS ORDERED: NICOTINE POLACRILEX 4 MG GUM BUC PRN (17:16)
[2024-05-17] MEDS ORDERED: NALOXONE HCL 0.4 MG/ML VIAL IM PRN (17:16)
[2024-05-17] MEDS ORDERED: guaiFENesin 600 MG TABLET.ER (FP) PO PRN (17:16)
[2024-05-17] MEDS ORDERED: BENZONATATE 200 MG CAPSULE PO PRN (17:16)
[2024-05-17] MEDS ORDERED: BISMUTH SUBSALICYLATE 524 MG/30 ML PO PRN (17:16)
[2024-05-17] MEDS ORDERED: MAGNESIUM HYDROX 2400MG/30ML ORAL SUSPENSION 30 ML CUP PO PRN (17:16)
[2024-05-17] MEDS ORDERED: POLYETHYLENE GLYCOL (HEALTHYLAX) 3350 17 GM PACKET PO PRN (17:16)
[2024-05-17] MEDS ORDERED: LOPERAMIDE HCL 2 MG CAPSULE PO PRN (17:16)
[2024-05-17] MEDS ORDERED: amLODIPine BESYLATE 5 MG TABLET (FP) ONE (17:59)
[2024-05-17] MEDS: amLODIPine BESYLATE 5 MG TABLET (FP) PO SCH (18:00)
[2024-05-17] MEDS: IBUPROFEN 600 MG TABLET (FP) PO PRN (18:41)
[2024-05-17] MEDS: MELATONIN 5 MG TABLETS PO SCH (21:55)
[2024-05-17] MEDS: THIAMINE 100 MG TABLET PO SCH (21:55)
[2024-05-17] MEDS: METHOCARBAMOL 500 MG TABLET PO PRN (21:56)
[2024-05-17] MEDS: hydrOXYzine PAMOATE 25 MG CAPSULE (FP) PO PRN (21:56)
[2024-05-18] MEDS ORDERED: chlordiazePOXIDE HCL 25 MG CAPSULE PO PRN (09:56)
[2024-05-18] MEDS: amLODIPine BESYLATE 10 MG TABLET (FP) PO SCH (10:12)
[2024-05-18] MEDS: chlordiazePOXIDE HCL 25 MG CAPSULE PO SCH (10:12)
[2024-05-18] MEDS: SERTRALINE HCL 50 MG TABLET (FP) PO SCH (10:12)
[2024-05-18] MEDS: PRENATAL VITAMINS W/ FOLIC ACID TABLET (FP) PO SCH (10:12)
[2024-05-18] MEDS: DICYCLOMINE HCL 10 MG CAPSULE PO PRN (10:12)
[2024-05-18] MEDS: ARIPiprazole 5 MG TABLET PO SCH (10:12)
[2024-05-18] MEDS: LISINOPRIL 20 MG TABLET PO SCH (10:12)
[2024-05-18] MEDS: NICOTINE 14 MG/24 HOURS TOPICAL PATCH TD SCH (10:16)
[2024-05-18 12:19] LABS: HEMATOCRIT 49.5 % (35.4-49); MCH 26.5 pg (25.7-33.7); MCHC 32.3 g/dl (32.0-35.9); MEAN CELL VOLUME 82.1 fl (80-96); PLATELET COUNT 195 10^3/uL (134-434); RBC 6.03 M/mm3 (4.00-5.60); RDW 16.8 % (11.9-15.9); WHITE BLOOD COUNT 7.6 K/mm3 (4.0-10.0)
[2024-05-18 12:25] LABS: CHLORIDE 106 mmol/L (98-107); POTASSIUM 4.3 mmol/L (3.5-5.1); SODIUM 142 mmol/L (136-145)
[2024-05-18 12:31] LABS: ALBUMIN 3.3 g/dl (3.4-5.0); ANION GAP 8 mmol/L (4-13); CALCIUM 8.7 mg/dL (8.5-10.1); CO2 28 mmol/L (21-32); GLUCOSE,RANDOM 102 mg/dL (74-106)
[2024-05-18 12:32] LABS: SGPT/ALT 23 U/L (13-61)
[2024-05-18 12:33] LABS: CREATININE 1.1 mg/dL (0.55-1.3); SGOT/AST 17 U/L (15-37)
[2024-05-18 12:34] LABS: BILIRUBIN,TOTAL 0.6 mg/dL (0.2-1); BLOOD UREA NITROGEN 14.1 mg/dL (7-18); TOT PROT 6.2 g/dl (6.4-8.2)
[2024-05-18 12:35] LABS: ALK PHOS 68 U/L (45-117)
[2024-05-18] MEDS: PRAZOSIN HCL 1 MG CAPSULE PO SCH (22:02)
[2024-05-19] MEDS: SULFAMETHOXAZOLE/TRIMETHOPRIM 800MG/160MG D.S. TABLET PO SCH (11:41)
[2024-05-20] MEDS: chlordiazePOXIDE HCL 25 MG CAPSULE PO SCH (05:44)
[2024-05-21] MEDS ORDERED: chlordiazePOXIDE HCL 10 MG CAPSULE PO PRN
[2024-05-21] MEDS: chlordiazePOXIDE HCL 10 MG CAPSULE PO SCH (05:50)
[2024-05-21] MEDS: SULFAMETHOXAZOLE/TRIMETHOPRIM 800MG/160MG D.S. TABLET PO SCH (09:56)
[2024-05-21] MEDS: IBUPROFEN 400 MG TABLET (FP) PO PRN (17:07)
[2024-05-22] MEDS: chlordiazePOXIDE HCL 10 MG CAPSULE PO SCH (05:49)
[2024-05-22 20:57] VITALS: RESP 16
[2024-05-23] MEDS: chlordiazePOXIDE HCL 10 MG CAPSULE PO ONE (05:44)
[2024-05-23 09:15] VITALS: BP 133/76; PULSE 83; TEMP 97.6
== END 2024-05-23 11:02 | disposition other institution (70) | DRG 897 ==
LOC: YASAS 15:35 → Y3N 18:06
PROVIDERS: ADMIT Allergy & Immunology; ATTEND Surgery
PROC: HZ2ZZZZ Detoxification Services for Substance Abuse Treatment (ICD-10-PCS; principal; 2024-05-17)
DX: F10.230 Alcohol dependence with withdrawal, uncomplicated (principal); F14.20 Cocaine dependence, uncomplicated; F17.210 Nicotine dependence, cigarettes, uncomplicated; F25.1 Schizoaffective disorder, depressive type; F31.9 Bipolar disorder, unspecified; F41.9 Anxiety disorder, unspecified; F43.10 Post-traumatic stress disorder, unspecified; I10 Essential (primary) hypertension; K21.9 Gastro-esophageal reflux disease without esophagitis; L03.012 Cellulitis of left finger
CPT/HCPCS: 36415; 80053; 80305; 80307; 85027; 86780; 93005; 93010

== ENCOUNTER 2024-05-20 19:53 | Emergency (ER) | payer OTHER ==
[2024-05-20 20:18] VITALS: BMI 25.0
[2024-05-20] MEDS ORDERED: LIDOCAINE HCL 1%, 10 MG/ML (20ML VIAL) ONE (20:57)
[2024-05-20] MEDS: LIDOCAINE HCL 1%, 10 MG/ML (50 mL VIAL) SQ ONE (20:58)
[2024-05-20 21:52] VITALS: BP 101/61; PULSE 92; RESP 17; TEMP 97.8
[2024-05-20 22:35] LABS: HIV INTERPRETATION NEGATIVE (NEGATIVE)
== END 2024-05-20 22:01 | disposition home or self-care (01) ==
LOC: JER 19:53
PROC: 0H9GXZZ Drainage of Left Hand Skin, External Approach (ICD-10-PCS; principal; 2024-05-20)
DX: L03.012 Cellulitis of left finger (principal); M79.89 Other specified soft tissue disorders
CPT/HCPCS: 10060; 36415; 86803; 87070; 87076; 87077; 87186; 87205; 87389; 99283-25

== ENCOUNTER 2024-07-11 11:25 | Inpatient (IN) | payer OTHER ==
[2024-07-11 11:59] VITALS: BMI 25.2
[2024-07-11] MEDS ORDERED: BENZONATATE 200 MG CAPSULE PO PRN (12:41)
[2024-07-11] MEDS ORDERED: BENZOCAINE/MENTHOL (CHLORASEPTIC ) LOZENGE MM PRN (12:41)
[2024-07-11] MEDS ORDERED: guaiFENesin 600 MG TABLET.ER (FP) PO PRN (12:41)
[2024-07-11] MEDS ORDERED: ACETAMINOPHEN 325 MG TABLET (FP) PO PRN (12:41)
[2024-07-11] MEDS ORDERED: MAGNESIUM HYDROX 2400MG/30ML ORAL SUSPENSION 30 ML CUP PO PRN (12:41)
[2024-07-11] MEDS ORDERED: NICOTINE POLACRILEX 2 MG GUM BUC PRN (12:41)
[2024-07-11] MEDS ORDERED: DICYCLOMINE HCL 10 MG CAPSULE PO PRN (12:41)
[2024-07-11] MEDS ORDERED: NICOTINE POLACRILEX 2 MG LOZENGE BC PRN (12:41)
[2024-07-11] MEDS ORDERED: BISMUTH SUBSALICYLATE 262 MG/15 ML BTL PO PRN (12:41)
[2024-07-11] MEDS ORDERED: MAG HYDROX/AL HYDROX/SIMETH 30 ML UNIT-DOSE CUP PO PRN (12:41)
[2024-07-11] MEDS ORDERED: IBUPROFEN 400 MG TABLET (FP) PO PRN (12:41)
[2024-07-11] MEDS ORDERED: LOPERAMIDE HCL 2 MG CAPSULE PO PRN (12:41)
[2024-07-11] MEDS ORDERED: ONDANSETRON *ODT* 4 MG TABLET SL PRN (12:41)
[2024-07-11] MEDS ORDERED: POLYETHYLENE GLYCOL (HEALTHYLAX) 3350 17 GM PACKET PO PRN (12:41)
[2024-07-11] MEDS: METHOCARBAMOL 500 MG TABLET PO PRN (17:34)
[2024-07-11] MEDS: hydrOXYzine PAMOATE 25 MG CAPSULE (FP) PO PRN (17:34)
[2024-07-11] MEDS: MELATONIN 5 MG TABLETS PO SCH (23:18)
[2024-07-11] MEDS: IBUPROFEN 600 MG TABLET (FP) PO PRN (23:18)
[2024-07-11] MEDS: THIAMINE 100 MG TABLET PO SCH (23:18)
[2024-07-12] MEDS: PRENATAL VITAMINS W/ FOLIC ACID TABLET (FP) PO SCH (10:21)
[2024-07-12] MEDS: diazePAM 5 MG TABLET PO SCH (10:21)
[2024-07-12] MEDS: FOLIC ACID 1 MG TABLET (FP) PO SCH (10:21)
[2024-07-12] MEDS: ARIPiprazole 5 MG TABLET PO SCH (10:50)
[2024-07-12] MEDS: SERTRALINE HCL 50 MG TABLET (FP) PO SCH (10:50)
[2024-07-12] MEDS ORDERED: amLODIPine BESYLATE 10 MG TABLET (FP) PO SCH (12:00)
[2024-07-12 12:05] LABS: HEMATOCRIT 46.5 % (35.4-49); HEMOGLOBIN 15.3 GM/dL (11.7-16.9); MCH 26.8 pg (25.7-33.7); MCHC 32.9 g/dl (32.0-35.9); MEAN CELL VOLUME 81.4 fl (80-96); MEAN PLT VOLUME 9.9 fl (7.5-11.1); PLATELET COUNT 195 10^3/uL (134-434); RBC 5.71 M/mm3 (4.00-5.60); RDW 16.7 % (11.9-15.9); WHITE BLOOD COUNT 4.1 K/mm3 (4.0-10.0)
[2024-07-12] MEDS: amLODIPine BESYLATE 5 MG TABLET (FP) PO SCH (12:32)
[2024-07-12 12:49] LABS: POTASSIUM 4.9 mmol/L (3.5-5.1)
[2024-07-12 12:50] LABS: ALBUMIN 3.3 g/dl (3.4-5.0); BLOOD UREA NITROGEN 13.7 mg/dL (7-18); CALCIUM 9.1 mg/dL (8.5-10.1)
[2024-07-12 12:53] LABS: CREATININE 1.4 mg/dL (0.55-1.3)
[2024-07-12 12:56] LABS: BILIRUBIN,TOTAL 0.3 mg/dL (0.2-1)
[2024-07-12] MEDS: PRAZOSIN HCL 1 MG CAPSULE PO SCH (22:34)
[2024-07-13] MEDS: diazePAM 5 MG TABLET PO SCH (06:23)
[2024-07-13] MEDS: diazePAM 5 MG TABLET PO PRN (10:41)
[2024-07-14] MEDS: diazePAM 5 MG TABLET PO SCH (06:19)
[2024-07-15] MEDS: diazePAM 5 MG TABLET PO ONE (06:20)
[2024-07-15 06:54] VITALS: RESP 16
[2024-07-15] MEDS: NALOXONE (NYS OPIOID OVERDOSE PROGRAM) 4 MG/0.1 ML SPRAY NS PRN (09:40)
[2024-07-15 10:01] VITALS: BP 128/68; PULSE 72; TEMP 97.5
== END 2024-07-15 09:45 | disposition home or self-care (01) | DRG 897 ==
LOC: YASAS 11:25 → Y6N 12:50
PROVIDERS: ADMIT Allergy & Immunology; ATTEND Surgery
PROC: HZ2ZZZZ Detoxification Services for Substance Abuse Treatment (ICD-10-PCS; principal; 2024-07-11)
DX: F10.230 Alcohol dependence with withdrawal, uncomplicated (principal); F14.20 Cocaine dependence, uncomplicated; F17.210 Nicotine dependence, cigarettes, uncomplicated; F31.9 Bipolar disorder, unspecified; F25.1 Schizoaffective disorder, depressive type; F19.24 Other psychoactive substance dependence with psychoactive substance-induced mood disorder; F43.10 Post-traumatic stress disorder, unspecified; Z21 Asymptomatic human immunodeficiency virus [HIV] infection status; I10 Essential (primary) hypertension; K21.9 Gastro-esophageal reflux disease without esophagitis
CPT/HCPCS: 36415; 80053; 80305; 80307; 85027

== ENCOUNTER 2024-08-15 12:57 | Inpatient (IN) | payer OTHER ==
[2024-08-15 14:10] VITALS: BMI 25.0
[2024-08-15] MEDS ORDERED: LOPERAMIDE HCL 2 MG CAPSULE PO PRN (15:16)
[2024-08-15] MEDS ORDERED: DICYCLOMINE HCL 10 MG CAPSULE PO PRN (15:16)
[2024-08-15] MEDS ORDERED: BENZONATATE 200 MG CAPSULE PO PRN (15:16)
[2024-08-15] MEDS ORDERED: POLYETHYLENE GLYCOL (HEALTHYLAX) 3350 17 GM PACKET PO PRN (15:16)
[2024-08-15] MEDS ORDERED: MAG HYDROX/AL HYDROX/SIMETH 30 ML UNIT-DOSE CUP PO PRN (15:16)
[2024-08-15] MEDS ORDERED: ONDANSETRON *ODT* 4 MG TABLET SL PRN (15:16)
[2024-08-15] MEDS ORDERED: guaiFENesin 600 MG TABLET.ER (FP) PO PRN (15:16)
[2024-08-15] MEDS ORDERED: ACETAMINOPHEN 325 MG TABLET (FP) PO PRN (15:16)
[2024-08-15] MEDS ORDERED: IBUPROFEN 400 MG TABLET (FP) PO PRN (15:16)
[2024-08-15] MEDS ORDERED: NALOXONE (NARCAN) HCL 4 MG/0.1 ML SPRAY NS PRN (15:16)
[2024-08-15] MEDS ORDERED: BENZOCAINE/MENTHOL (CHLORASEPTIC ) LOZENGE MM PRN (15:16)
[2024-08-15] MEDS ORDERED: chlordiazePOXIDE HCL 25 MG CAPSULE PO PRN (15:16)
[2024-08-15] MEDS ORDERED: BISMUTH SUBSALICYLATE 262 MG/15 ML BTL PO PRN (15:16)
[2024-08-15] MEDS ORDERED: MAGNESIUM HYDROX 2400MG/30ML ORAL SUSPENSION 30 ML CUP PO PRN (15:16)
[2024-08-15] MEDS ORDERED: NICOTINE POLACRILEX 2 MG GUM BUC PRN (15:24)
[2024-08-15] MEDS: chlordiazePOXIDE HCL 25 MG CAPSULE PO SCH (16:53)
[2024-08-15] MEDS: LISINOPRIL 20 MG TABLET PO ONE ×2 (16:53→18:29)
[2024-08-15] MEDS: THIAMINE 100 MG TABLET PO SCH (22:33)
[2024-08-15] MEDS: PRAZOSIN HCL 1 MG CAPSULE PO SCH (22:33)
[2024-08-15] MEDS: MELATONIN 5 MG TABLETS PO SCH (22:33)
[2024-08-15] MEDS: FAMOTIDINE 20 MG TABLET PO SCH (22:34)
[2024-08-16] MEDS: NICOTINE 14 MG/24 HOURS TOPICAL PATCH TD SCH (10:33)
[2024-08-16] MEDS: amLODIPine BESYLATE 5 MG TABLET (FP) PO SCH (10:33)
[2024-08-16] MEDS: PRENATAL VITAMINS W/ FOLIC ACID TABLET (FP) PO SCH (10:33)
[2024-08-16] MEDS: NALTREXONE HCL 50 MG TABLET PO ONE (10:36)
[2024-08-16] MEDS: ARIPiprazole 5 MG TABLET PO SCH (10:55)
[2024-08-16] MEDS: SERTRALINE HCL 50 MG TABLET (FP) PO SCH (10:55)
[2024-08-16] MEDS: EMTRICITABINE/TENOFOV ALAFENAM (DESCOVY) TABLET PO SCH (11:40)
[2024-08-16 12:50] LABS: CHLORIDE 108 mmol/L (98-107); HEMATOCRIT 45.4 % (35.4-49); HEMOGLOBIN 14.7 GM/dL (11.7-16.9); MCH 26.2 pg (25.7-33.7); MCHC 32.3 g/dl (32.0-35.9); MEAN CELL VOLUME 81.2 fl (80-96); MEAN PLT VOLUME 9.1 fl (7.5-11.1); PLATELET COUNT 155 10^3/uL (134-434); POTASSIUM 3.7 mmol/L (3.5-5.1); RDW 16.3 % (11.9-15.9); SODIUM 141 mmol/L (136-145); WHITE BLOOD COUNT 4.1 K/mm3 (4.0-10.0)
[2024-08-16 12:53] LABS: ALBUMIN 2.9 g/dl (3.4-5.0); ANION GAP 7 mmol/L (4-13); CALCIUM 8.5 mg/dL (8.5-10.1); CO2 26 mmol/L (21-32)
[2024-08-16 12:56] LABS: BLOOD UREA NITROGEN 10.7 mg/dL (7-18); GLUCOSE,RANDOM 92 mg/dL (74-106); SGPT/ALT 27 U/L (13-61)
[2024-08-16 12:58] LABS: BILIRUBIN,TOTAL 0.3 mg/dL (0.2-1); SGOT/AST 21 U/L (15-37); TOT PROT 5.4 g/dl (6.4-8.2)
[2024-08-16 12:59] LABS: ALK PHOS 45 U/L (45-117)
[2024-08-16] MEDS: PRAZOSIN HCL 1 MG CAPSULE PO SCH (22:31)
[2024-08-17] MEDS: chlordiazePOXIDE HCL 25 MG CAPSULE PO SCH (05:41)
[2024-08-17] MEDS: NALTREXONE HCL 50 MG TABLET PO SCH (10:22)
[2024-08-17] MEDS: METHOCARBAMOL 500 MG TABLET PO PRN (17:07)
[2024-08-17] MEDS: IBUPROFEN 600 MG TABLET (FP) PO PRN (17:08)
[2024-08-18] MEDS ORDERED: chlordiazePOXIDE HCL 10 MG CAPSULE PO PRN
[2024-08-18] MEDS: chlordiazePOXIDE HCL 10 MG CAPSULE PO SCH (05:55)
[2024-08-19] MEDS: chlordiazePOXIDE HCL 10 MG CAPSULE PO SCH (05:23)
[2024-08-19] MEDS: hydrOXYzine PAMOATE 25 MG CAPSULE (FP) PO PRN (10:11)
[2024-08-19] MEDS: NALOXONE (NYS OPIOID OVERDOSE PROGRAM) 4 MG/0.1 ML SPRAY NS SCH (15:21)
[2024-08-20] MEDS: chlordiazePOXIDE HCL 10 MG CAPSULE PO ONE (05:56)
[2024-08-21 10:02] VITALS: BP 124/78; PULSE 84; RESP 16; TEMP 97.6
== END 2024-08-21 09:40 | disposition home or self-care (01) | DRG 897 ==
LOC: YASAS 12:57 → Y6N 15:19
PROVIDERS: ADMIT Allergy & Immunology; ATTEND Surgery
PROC: HZ2ZZZZ Detoxification Services for Substance Abuse Treatment (ICD-10-PCS; principal; 2024-08-15)
DX: F10.230 Alcohol dependence with withdrawal, uncomplicated (principal); F14.20 Cocaine dependence, uncomplicated; Z59.00 Homelessness unspecified; F12.10 Cannabis abuse, uncomplicated; F25.1 Schizoaffective disorder, depressive type; F43.10 Post-traumatic stress disorder, unspecified; F41.9 Anxiety disorder, unspecified; F19.94 Other psychoactive substance use, unspecified with psychoactive substance-induced mood disorder; F31.9 Bipolar disorder, unspecified; I10 Essential (primary) hypertension; K21.9 Gastro-esophageal reflux disease without esophagitis; J45.909 Unspecified asthma, uncomplicated; M54.59 Other low back pain; G89.29 Other chronic pain; Z91.013 Allergy to seafood; Z91.018 Allergy to other foods; Z86.59 Personal history of other mental and behavioral disorders; Z91.51 Personal history of suicidal behavior; Z56.0 Unemployment, unspecified
CPT/HCPCS: 36415; 80053; 80307; 85027; 86780; 93005; 93010

== ENCOUNTER 2024-10-20 08:18 | Inpatient (IN) | payer OTHER ==
[2024-10-20 08:58] VITALS: BMI 24.2
[2024-10-20] MEDS ORDERED: BENZOCAINE/MENTHOL (CHLORASEPTIC ) LOZENGE MM PRN (09:20)
[2024-10-20] MEDS ORDERED: guaiFENesin 600 MG TABLET.ER (FP) PO PRN (09:20)
[2024-10-20] MEDS ORDERED: NICOTINE POLACRILEX 2 MG LOZENGE BC PRN (09:20)
[2024-10-20] MEDS ORDERED: DICYCLOMINE HCL 10 MG CAPSULE PO PRN (09:20)
[2024-10-20] MEDS ORDERED: BISMUTH SUBSALICYLATE 262 MG/15 ML BTL PO PRN (09:20)
[2024-10-20] MEDS ORDERED: ONDANSETRON *ODT* 4 MG TABLET SL PRN (09:20)
[2024-10-20] MEDS ORDERED: MAGNESIUM HYDROX 2400MG/30ML ORAL SUSPENSION 30 ML CUP PO PRN (09:20)
[2024-10-20] MEDS ORDERED: LOPERAMIDE HCL 2 MG CAPSULE PO PRN (09:20)
[2024-10-20] MEDS ORDERED: NALOXONE (NARCAN) HCL 4 MG/0.1 ML SPRAY NS PRN (09:20)
[2024-10-20] MEDS ORDERED: POLYETHYLENE GLYCOL (HEALTHYLAX) 3350 17 GM PACKET PO PRN (09:20)
[2024-10-20] MEDS ORDERED: IBUPROFEN 400 MG TABLET (FP) PO PRN (09:20)
[2024-10-20] MEDS ORDERED: IBUPROFEN 600 MG TABLET (FP) PO PRN (09:20)
[2024-10-20] MEDS ORDERED: MAG HYDROX/AL HYDROX/SIMETH 30 ML UNIT-DOSE CUP PO PRN (09:20)
[2024-10-20] MEDS ORDERED: ACETAMINOPHEN 325 MG TABLET (FP) PO PRN (09:20)
[2024-10-20] MEDS ORDERED: NICOTINE POLACRILEX 2 MG GUM BUC PRN (09:20)
[2024-10-20] MEDS ORDERED: P-EPHED 60MG/TRIPROLIDI 2.5MG TABLET PO PRN (09:20)
[2024-10-20] MEDS ORDERED: BENZONATATE 200 MG CAPSULE PO PRN (09:20)
[2024-10-20] MEDS ORDERED: diazePAM 5 MG TABLET ONE (11:25)
[2024-10-20] MEDS ORDERED: PRENATAL VITAMINS W/ FOLIC ACID TABLET (FP) PO ONE (11:26)
[2024-10-20] MEDS: PRENATAL VITAMINS W/ FOLIC ACID TABLET (FP) PO SCH (11:29)
[2024-10-20] MEDS: diazePAM 5 MG TABLET PO SCH (11:29)
[2024-10-20] MEDS: OSELTAMIVIR PHOSPHATE 75 MG CAPSULE PO SCH (15:00)
[2024-10-20] MEDS: THIAMINE 100 MG TABLET PO SCH (22:47)
[2024-10-20] MEDS: MELATONIN 5 MG TABLETS PO SCH (22:47)
[2024-10-21 08:42] LABS: POTASSIUM 3.6 mmol/L (3.5-5.1)
[2024-10-21 08:43] LABS: CALCIUM 8.2 mg/dL (8.5-10.1)
[2024-10-21 08:44] LABS: BLOOD UREA NITROGEN 12.4 mg/dL (7-18)
[2024-10-21 08:46] LABS: ALBUMIN 3.2 g/dl (3.4-5.0)
[2024-10-21 08:49] LABS: BILIRUBIN,TOTAL 0.5 mg/dL (0.2-1); CREATININE 0.9 mg/dL (0.55-1.3)
[2024-10-21 09:02] LABS: HEMATOCRIT 45.6 % (35.4-49); MCH 26.7 pg (25.7-33.7); MCHC 32.9 g/dl (32.0-35.9); MEAN CELL VOLUME 81.2 fl (80-96); MEAN PLT VOLUME 8.6 fl (7.5-11.1); PLATELET COUNT 155 10^3/uL (134-434); RBC 5.62 M/mm3 (4.00-5.60); RDW 15.9 % (11.9-15.9); WHITE BLOOD COUNT 3.1 K/mm3 (4.0-10.0)
[2024-10-21] MEDS: FLUTICASONE/UMECLIDIN/VILANTER(100-62.5-25 TRELEGY ELLIPTA) INAHLER IH SCH (10:32)
[2024-10-22] MEDS: diazePAM 5 MG TABLET PO SCH (06:01)
[2024-10-22] MEDS: SERTRALINE HCL 50 MG TABLET (FP) PO SCH (11:05)
[2024-10-22] MEDS: ARIPiprazole 5 MG TABLET PO SCH (11:05)
[2024-10-22] MEDS: diazePAM 5 MG TABLET PO PRN (18:21)
[2024-10-22] MEDS: METHOCARBAMOL 500 MG TABLET PO PRN (22:13)
[2024-10-22] MEDS: PRAZOSIN HCL 1 MG CAPSULE PO SCH (22:13)
[2024-10-23] MEDS: diazePAM 5 MG TABLET PO SCH (06:03)
[2024-10-23] MEDS: amLODIPine BESYLATE 5 MG TABLET (FP) PO SCH (12:17)
[2024-10-23] MEDS: BICTEGRAV/EMTRICIT/TENOFOV (BIKTARVY) 50-200-25 MG TABLET PO SCH (12:22)
[2024-10-23] MEDS: NALTREXONE HCL 50 MG TABLET PO SCH (12:54)
[2024-10-23 21:10] VITALS: RESP 16
[2024-10-24] MEDS: diazePAM 5 MG TABLET PO ONE (05:42)
[2024-10-24 08:59] VITALS: BP 139/80; PULSE 74; TEMP 98.7
== END 2024-10-24 09:59 | disposition other institution (70) | DRG 897 ==
LOC: YASAS 08:18 → Y6N 12:01
PROVIDERS: ADMIT Allergy & Immunology; ATTEND Allergy & Immunology
PROC: HZ2ZZZZ Detoxification Services for Substance Abuse Treatment (ICD-10-PCS; principal; 2024-10-20)
DX: F10.230 Alcohol dependence with withdrawal, uncomplicated (principal); F19.282 Other psychoactive substance dependence with psychoactive substance-induced sleep disorder; Z59.00 Homelessness unspecified; F14.10 Cocaine abuse, uncomplicated; F17.210 Nicotine dependence, cigarettes, uncomplicated; F25.1 Schizoaffective disorder, depressive type; F19.24 Other psychoactive substance dependence with psychoactive substance-induced mood disorder; F43.10 Post-traumatic stress disorder, unspecified; Z21 Asymptomatic human immunodeficiency virus [HIV] infection status; I10 Essential (primary) hypertension; J45.20 Mild intermittent asthma, uncomplicated; J10.1 Influenza due to other identified influenza virus with other respiratory manifestations; K21.9 Gastro-esophageal reflux disease without esophagitis; Z62.810 Personal history of physical and sexual abuse in childhood; Z91.410 Personal history of adult physical and sexual abuse; Z63.8 Other specified problems related to primary support group; Z63.0 Problems in relationship with spouse or partner
CPT/HCPCS: 0241U-QW; 36415; 80053; 80305; 80307; 85027

== ENCOUNTER 2024-12-10 22:13 | Inpatient (IN) | payer OTHER ==
[2024-12-10 22:48] VITALS: BMI 24.3
[2024-12-11] MEDS ORDERED: BENZONATATE 200 MG CAPSULE PO PRN (00:27)
[2024-12-11] MEDS ORDERED: ACETAMINOPHEN 325 MG TABLET (FP) PO PRN (00:27)
[2024-12-11] MEDS ORDERED: BISMUTH SUBSALICYLATE 524 MG/30 ML PO PRN (00:27)
[2024-12-11] MEDS ORDERED: LOPERAMIDE HCL 2 MG CAPSULE PO PRN (00:27)
[2024-12-11] MEDS ORDERED: ONDANSETRON *ODT* 4 MG TABLET SL PRN (00:27)
[2024-12-11] MEDS ORDERED: MAGNESIUM HYDROX 2400MG/30ML ORAL SUSPENSION 30 ML CUP PO PRN (00:27)
[2024-12-11] MEDS ORDERED: MAG HYDROX/AL HYDROX/SIMETH 30 ML UNIT-DOSE CUP PO PRN (00:27)
[2024-12-11] MEDS ORDERED: DICYCLOMINE HCL 10 MG CAPSULE PO PRN (00:27)
[2024-12-11] MEDS ORDERED: POLYETHYLENE GLYCOL (HEALTHYLAX) 3350 17 GM PACKET PO PRN (00:27)
[2024-12-11] MEDS ORDERED: BENZOCAINE/MENTHOL (CHLORASEPTIC ) LOZENGE MM PRN (00:27)
[2024-12-11] MEDS ORDERED: IBUPROFEN 400 MG TABLET (FP) PO PRN (00:27)
[2024-12-11] MEDS ORDERED: NALOXONE (NARCAN) HCL 4 MG/0.1 ML SPRAY NS PRN (00:27)
[2024-12-11] MEDS ORDERED: IBUPROFEN 600 MG TABLET (FP) PO PRN (00:27)
[2024-12-11] MEDS ORDERED: NICOTINE POLACRILEX 2 MG GUM BUC PRN (00:27)
[2024-12-11] MEDS ORDERED: chlordiazePOXIDE HCL 25 MG CAPSULE PO PRN (00:30)
[2024-12-11] MEDS ORDERED: ALBUTEROL SO4 HFA INHALER IH PRN (01:13)
[2024-12-11] MEDS: chlordiazePOXIDE HCL 25 MG CAPSULE PO SCH (05:27)
[2024-12-11] MEDS: PRENATAL VITAMINS W/ FOLIC ACID TABLET (FP) PO SCH (10:12)
[2024-12-11] MEDS: NICOTINE 14 MG/24 HOURS TOPICAL PATCH TD SCH (10:16)
[2024-12-11] MEDS: MELATONIN 5 MG TABLETS PO SCH (22:11)
[2024-12-11] MEDS: THIAMINE 100 MG TABLET PO SCH (22:11)
[2024-12-11] MEDS: hydrOXYzine PAMOATE 25 MG CAPSULE (FP) PO PRN (22:12)
[2024-12-12] MEDS: chlordiazePOXIDE HCL 25 MG CAPSULE PO SCH (05:24)
[2024-12-12] MEDS: ARIPiprazole 5 MG TABLET PO SCH (09:47)
[2024-12-12] MEDS: SERTRALINE HCL 50 MG TABLET (FP) PO SCH (09:47)
[2024-12-12] MEDS: amLODIPine BESYLATE 5 MG TABLET (FP) PO SCH (11:27)
[2024-12-12] MEDS: FLUTICASONE/UMECLIDIN/VILANTER(100-62.5-25 TRELEGY ELLIPTA) INAHLER IH SCH (12:12)
[2024-12-12 12:22] LABS: HEMATOCRIT 45.6 % (40.1-51.0); HEMOGLOBIN 15.2 g/dL (13.7-17.5); MCHC 33.3 g/dl (32.3-36.5); MEAN CELL VOLUME 81.1 fl (79.0-92.2); PLATELET COUNT 136 x10^3/uL (163-337); RDW 14.6 % (12.2-16.1)
[2024-12-12 12:29] LABS: POTASSIUM 3.7 mmol/L (3.5-5.1)
[2024-12-12 12:44] LABS: BLOOD UREA NITROGEN 11.8 mg/dL (7-18)
[2024-12-12 12:45] LABS: ALBUMIN 3.2 g/dl (3.4-5.0)
[2024-12-12 12:46] LABS: CALCIUM 8.5 mg/dL (8.5-10.1)
[2024-12-12 12:49] LABS: BILIRUBIN,TOTAL 0.6 mg/dL (0.2-1)
[2024-12-12] MEDS: guaiFENesin 600 MG TABLET.ER (FP) PO PRN (17:26)
[2024-12-12] MEDS: METHOCARBAMOL 500 MG TABLET PO PRN (22:08)
[2024-12-13] MEDS ORDERED: chlordiazePOXIDE HCL 10 MG CAPSULE PO PRN
[2024-12-13] MEDS: chlordiazePOXIDE HCL 10 MG CAPSULE PO SCH (05:15)
[2024-12-14] MEDS: chlordiazePOXIDE HCL 10 MG CAPSULE PO SCH (05:44)
[2024-12-14] MEDS ORDERED: P-EPHED 60MG/TRIPROLIDI 2.5MG TABLET PO PRN (09:12)
[2024-12-14] MEDS: PRAZOSIN HCL 1 MG CAPSULE PO SCH (21:51)
[2024-12-15] MEDS: chlordiazePOXIDE HCL 10 MG CAPSULE PO ONE (06:00)
[2024-12-15 09:36] VITALS: BP 130/78; PULSE 79; RESP 18; TEMP 98
== END 2024-12-15 10:19 | disposition home or self-care (01) | DRG 897 ==
LOC: YASAS 22:13 → Y3N 12-11 01:25
PROVIDERS: ADMIT Allergy & Immunology; ATTEND Allergy & Immunology
PROC: HZ2ZZZZ Detoxification Services for Substance Abuse Treatment (ICD-10-PCS; principal; 2024-12-11)
DX: F10.230 Alcohol dependence with withdrawal, uncomplicated (principal); F14.20 Cocaine dependence, uncomplicated; Z59.01 Sheltered homelessness; F17.210 Nicotine dependence, cigarettes, uncomplicated; F25.1 Schizoaffective disorder, depressive type; F31.9 Bipolar disorder, unspecified; F19.24 Other psychoactive substance dependence with psychoactive substance-induced mood disorder; F43.10 Post-traumatic stress disorder, unspecified; F41.9 Anxiety disorder, unspecified; F32.A Depression, unspecified; I10 Essential (primary) hypertension; J45.20 Mild intermittent asthma, uncomplicated; K21.9 Gastro-esophageal reflux disease without esophagitis; Z62.810 Personal history of physical and sexual abuse in childhood; Z91.410 Personal history of adult physical and sexual abuse
CPT/HCPCS: 36415; 80053; 80305; 80307; 85027; 86780; 93005; 93010